=== PATIENT | male | born 1980 | race Caucasian/White ===

== ENCOUNTER 2019-04-23 09:30 | Day surgery (SDC) | payer OTHER ==
[~2019-04-23] VITALS: Ht 185.4 cm; Wt 87.0 kg
[~2019-04-23 09:30] MED LIST: BUPIVACAINE/PF 0.5% ONE; LIDOCAINE 1%, 20ML ONE
[2019-04-23 10:01] VITALS: BP 114/75
[2019-04-23] MEDS ORDERED: LACTATED RINGERS 1,000 ML IV SCH (10:05)
[2019-04-23] MEDS ORDERED: no medications (10:06)
[2019-04-23] MEDS ORDERED: FENTANYL PF 100 MCG/2ML ONE (10:28)
[2019-04-23] MEDS ORDERED: MIDAZOLAM 1 MG/ML, 2ML ONE (10:28)
[2019-04-23] MEDS ORDERED: MEPERIDINE/PF 100 MG/ML ONE (11:30)
[2019-04-23] MEDS ORDERED: CEFAZOLIN 1,000 MG ONE (11:47)
[2019-04-23] MEDS ORDERED: DEXAMETHASONE 4 MG/ML, 1ML ONE (11:47)
[2019-04-23] MEDS ORDERED: PROPOFOL 10 MG/ML, 20ML ONE (11:47)
[2019-04-23] MEDS ORDERED: ONDANSETRON 2MG/ML, 2ML ONE (11:47)
[2019-04-23] MEDS ORDERED: ACETAMINOPHEN 325 MG TABLET PO PRN (12:00)
[2019-04-23] MEDS ORDERED: hydrALAzine 20 MG/ML, 1ML IV PRN (12:00)
[2019-04-23] MEDS ORDERED: HYDROmorphone 2 MG/ML, 1ML IVPush PRN (12:00)
[2019-04-23] MEDS ORDERED: FENTANYL PF 100 MCG/2ML IV PRN (12:00)
[2019-04-23] MEDS ORDERED: LABETALOL 5MG/ML, 20ML IV PRN (12:00)
[2019-04-23] MEDS ORDERED: ALBUTEROL SULFATE 2.5 MG/3 ML NPPB PRN (12:00)
[2019-04-23] MEDS ORDERED: OXYcodone 5 MG/5 ML ORAL.SOL UDC PO PRN (12:00)
[2019-04-23] MEDS ORDERED: KETOROLAC 30 MG/1 ML IV PRN (12:00)
[2019-04-23] MEDS ORDERED: MEPERIDINE/PF 25MG/0.5ML IVPush PRN (12:00)
[2019-04-23] MEDS ORDERED: DIAZEPAM 5 MG/ML, 2ML IVPush PRN (12:00)
[2019-04-23] MEDS ORDERED: PROMETHAZINE 25 MG/ML, 1ML IV PRN (12:00)
== END 2019-04-23 13:40 | disposition home or self-care (01) ==
LOC: OUT 09:30
PROVIDERS: ATTEND Orthopaedic Surgery
DX: S83.232A Complex tear of medial meniscus, current injury, left knee, initial encounter (principal); M22.42 Chondromalacia patellae, left knee; M67.52 Plica syndrome, left knee; Z88.2 Allergy status to sulfonamides; X58.XXXA Exposure to other specified factors, initial encounter; Y93.02 Activity, running; Y92.89 Other specified places as the place of occurrence of the external cause; Y99.8 Other external cause status
CPT/HCPCS: 29881; J0690; J1100; J2175; J2250; J2405; J2704; J3010; J7120